=== PATIENT | female | born 2000 | race Caucasian/White ===

== ENCOUNTER → 2024-02-05 | Emergency (ER) | payer MEDICAID ==
[~2024-02-05] VITALS: Ht 175.3 cm; Wt 81.6 kg
[~2024-02-05] MED LIST: CIPR5DRO18 LEFTEYE; SULF1TAB48 PO; TETRAcaine 5 ML BOTTLE ONE
[2024-02-05 13:50] VITALS: TEMP 98.7
[2024-02-05] MEDS: CEFTRIAXONE 1 G VIAL IM ONE (14:28)
[2024-02-05] MEDS: CIPROFLOXACIN HCL 0.3% 5 ML BOTTLE LEFTEYE SCH (14:28)
[2024-02-05] MEDS: TETRACAINE HCL 0.5% OPHTALMIC 15 ML BOTTLE OP ONE (15:11)
[2024-02-05] MEDS: FLUORESCEIN SODIUM OPHTH 1 EA STRIP OP ONE (15:11)
[2024-02-05 15:32] VITALS: BP 144/78; O2SAT 100
== END | disposition left against medical advice (07) ==
LOC: ER 13:55
DX: H00.035 Abscess of left lower eyelid (principal); Z79.899 Other long term (current) drug therapy
CPT/HCPCS: 99283; 96372; J0696

== ENCOUNTER 2024-06-07 13:10 | Emergency (ER) | payer MEDICAID ==
[~2024-06-07] VITALS: Ht 175.3 cm; Wt 86.2 kg
[~2024-06-07 13:10] MED LIST changes: -TETRAcaine 5 ML BOTTLE ONE
[2024-06-07] MEDS ORDERED: LIDOCAINE HCL/PF 1% 30 ML SDV ONE (14:31)
[2024-06-07 15:09] VITALS: BP 126/79; TEMP 98.3; O2SAT 99
== END 2024-06-07 15:10 | disposition home or self-care (01) ==
LOC: ER 13:16
DX: L60.0 Ingrowing nail (principal)
CPT/HCPCS: 99284; 11730; J3490

== ENCOUNTER 2024-06-26 16:02 | Emergency (ER) | payer MEDICAID ==
[~2024-06-26] VITALS: Ht 172.7 cm; Wt 86.2 kg
[2024-06-26 18:59] VITALS: BP 132/89; TEMP 97.9; O2SAT 99
== END 2024-06-26 19:00 | disposition home or self-care (01) ==
LOC: ER 16:02
DX: S90.812A Abrasion, left foot, initial encounter (principal); S90.811A Abrasion, right foot, initial encounter; S90.822A Blister (nonthermal), left foot, initial encounter; S90.821A Blister (nonthermal), right foot, initial encounter; X58.XXXA Exposure to other specified factors, initial encounter; Y93.01 Activity, walking, marching and hiking; Y92.89 Other specified places as the place of occurrence of the external cause; Y99.8 Other external cause status

== ENCOUNTER 2024-08-01 19:54 | Emergency (ER) | payer MEDICAID ==
[~2024-08-01] VITALS: Ht 175.3 cm; Wt 86.2 kg
[2024-08-01 20:17] VITALS: BP 144/90; TEMP 98
[2024-08-01 20:20] VITALS: O2SAT 99
[2024-08-01] MEDS ORDERED: CEPH-570 PO (20:21)
[2024-08-01] MEDS ORDERED: DOXY100C2 PO (20:21)
== END 2024-08-01 20:43 | disposition home or self-care (01) ==
LOC: ER 19:56
DX: J34.0 Abscess, furuncle and carbuncle of nose (principal)

== ENCOUNTER 2024-08-03 08:58 | Emergency (ER) | payer MEDICAID ==
[~2024-08-03] VITALS: Ht 175.3 cm; Wt 86.2 kg
[~2024-08-03 08:58] MED LIST changes: +CEPH-570 PO; +DOXY100C2 PO
[2024-08-03 09:07] VITALS: BP 131/76; TEMP 98
[2024-08-03 09:35] VITALS: O2SAT 100
== END 2024-08-03 09:36 | disposition home or self-care (01) ==
LOC: ER 09:01
DX: J34.0 Abscess, furuncle and carbuncle of nose (principal)

== ENCOUNTER 2024-10-04 01:19 | Emergency (ER) | payer MEDICAID ==
[~2024-10-04] VITALS: Ht 175.3 cm; Wt 90.7 kg
[2024-10-04 02:26] VITALS: BP 127/79; TEMP 98.2; O2SAT 100
[2024-10-04] MEDS ORDERED: AMOX-430 PO (03:38)
== END 2024-10-04 03:47 | disposition home or self-care (01) ==
LOC: ER 01:21
DX: L03.031 Cellulitis of right toe (principal); L60.0 Ingrowing nail; Z79.899 Other long term (current) drug therapy

== ENCOUNTER 2025-01-02 13:19 | Emergency (ER) | payer MEDICAID ==
[~2025-01-02] VITALS: Ht 175.3 cm; Wt 81.6 kg
[~2025-01-02 13:19] MED LIST changes: +AMOX-430 PO
[2025-01-02 13:42] VITALS: BP 116/67; TEMP 98.1
[2025-01-02 13:55] LABS: APPEARANCE,URINE SLIGHTLY CLOUDY (CLEAR); BILIRUBIN,URINE NEGATIVE (NEGATIVE); BLOOD, URINE TRACE-INTA Ery/uL (NEGATIVE); COLOR,URINE YELLOW (YELLOW); KETONES,URINE NEGATIVE (NEGATIVE); LEUKOCYTE ESTERASE ,URINE 2+ (NEGATIVE); NITRITE, URINE POSITIVE (NEGATIVE); PROTEIN,URINE TRACE mg/dl (NEGATIVE); UGLUCOSE NEGATIVE (NEGATIVE)
[2025-01-02 13:57] LABS: PREGNANCY TEST URINE QUAL NEGATIVE (NEGATIVE)
[2025-01-02 14:13] LABS: ADD URINE CULTURE YES; BACTERIA,URINE Many /HPF (None Seen); WBC,URINE 21-50 /HPF (0-3)
[2025-01-02 14:14] LABS: SQUAMOUS EPITHELIAL CELL,UR 0-2 /HPF (None Seen)
[2025-01-02] MEDS ORDERED: NITR100C6 PO (14:31)
[2025-01-02] MEDS ORDERED: FLUC150T5 PO (14:31)
[2025-01-02 14:49] VITALS: O2SAT 99
[2025-01-05 02:07] LABS: CHLAMYDIA TRACHOMATIS NAA Negative (Negative); NEISSERIA GONORRHOEAE NAA Negative (Negative)
== END 2025-01-02 14:50 | disposition home or self-care (01) ==
LOC: ER 13:19
DX: N30.00 Acute cystitis without hematuria (principal); B37.31 Acute candidiasis of vulva and vagina; Z79.899 Other long term (current) drug therapy
CPT/HCPCS: 81001; 84703-TC; 87086-TC; 87186-TC; 87491; 87591

== ENCOUNTER 2025-02-10 19:49 | Emergency (ER) | payer MEDICAID ==
[~2025-02-10] VITALS: Ht 162.6 cm; Wt 79.4 kg
[~2025-02-10 19:49] MED LIST changes: +FLUC150T5 PO; +NITR100C6 PO
[2025-02-10] MEDS ORDERED: FAMOTIDINE/PF INJ 20 MG/2 ML VIAL IV ONE (21:00)
[2025-02-10] MEDS ORDERED: IV NS 0.9% 1,000 ML BAG IV ONE (21:00)
[2025-02-10] MEDS ORDERED: PANTOPRAZOLE 40 MG VIAL IV ONE (21:00)
[2025-02-10] MEDS ORDERED: DIPH103G TP (21:11)
[2025-02-10 21:16] VITALS: BP 115/80; TEMP 98; O2SAT 98
== END 2025-02-10 21:17 | disposition home or self-care (01) ==
LOC: ER 19:51
DX: S40.862A Insect bite (nonvenomous) of left upper arm, initial encounter (principal); S40.861A Insect bite (nonvenomous) of right upper arm, initial encounter; W57.XXXA Bitten or stung by nonvenomous insect and other nonvenomous arthropods, initial encounter; Y93.89 Activity, other specified; Y92.89 Other specified places as the place of occurrence of the external cause; Y99.8 Other external cause status